=== PATIENT | female | born 1970 | race American Indian/Alaskan Native ===

== ENCOUNTER 2018-01-21 00:32 | Observation (INO) | payer BC ==
[2018-01-21] MEDS ORDERED: ASPIRIN PO ONE (07:47)
--- NOTE | 2018-01-21 08:22 | Emergency Department Report ---
ED Chest Pain HPI - General Chief Complaint: Chest Pain Stated Complaint: CHEST PAIN Time Seen by Provider: 01/21/18 08:21 Source: patient Mode of arrival: Ambulatory Limitations: No Limitations - History of Present Illness Initial Comments: 47-year-old female that denies any previous workup for chest pain or emergency department visit. She states that she was at work at or about 3:30 when she experienced substernal chest pain. She denied any radiation. The pain was not pleuritic. She did not complain of nausea vomiting sweating or any shortness of breath. She states she has never experienced anything like this before. She 's had no prior workup for chest pain or visit to a physical chemistry professor for anything in the past. She states that she was essentially resting at work when this chest pain began. MD Complaint: chest pain -: Gradual, minutes(s) Onset: during rest Pain Location: substernal Pain Radiation: none Severity: moderate Quality: aching Consistency: constant Improves With: nothing Worsens With: nothing re: denies: nausea, vomting, diaphoresis, dyspnea, sense of impending doom Other Symptoms: denies: cough, fever, syncope, rash, acid taste in mouth, leg swelling Treatments Prior to Arrival: none Aspirin use within the Past 7 Days: (0) No - Related Data On Oral Contraceptives: No Home Medications Medication Instructions Recorded Confirmed Last Taken Ibuprofen [Motrin] 800 mg PO DAILY PRN 01/21/18 01/21/18 Unknown Allergies Allergy/AdvReac Type Severity Reaction Status Date / Time No Known Allergies Allergy Unverified 01/21/18 07:46 Heart Score - HEART Score History: Moderately suspicious EKG: Non-specific (mildly, essentially normal) Age: 45-65 Risk factors: 1-2 risk factors Troponin: < normal limit HEART Score: 4 - Critical Actions Critical Actions: 4-6 pts:12-16.6% risk of adverse cardiac event. Should be admitted ED Review of Systems ROS: Stated complaint: CHEST PAIN Other details as noted in HPI Constitutional: denies: chills, fever Eyes: denies: eye pain, eye discharge, vision change ENT: denies: ear pain, throat pain Respiratory: denies: cough, shortness of breath, wheezing Cardiovascular: denies: chest pain, palpitations Endocrine: no symptoms reported Gastrointestinal: denies: abdominal pain, nausea, diarrhea Genitourinary: denies: urgency, dysuria, discharge Musculoskeletal: denies: back pain, joint swelling, arthralgia Skin: denies: rash, lesions Neurological: denies: headache, weakness, paresthesias Psychiatric: denies: anxiety, depression Hematological/Lymphatic: denies: easy bleeding, easy bruising ED Past Medical Hx - Past Medical History Previous Medical History?: No - Surgical History Past Surgical History?: No - Social History Smoking Status: Never Smoker Substance Use Type: None - Medications Home Medications: Home Medications Medication Instructions Recorded Confirmed Last Taken Type Ibuprofen [Motrin] 800 mg PO DAILY PRN 01/21/18 01/21/18 Unknown History ED Physical Exam - General Limitations: No Limitations General appearance: alert, in no apparent distress, obese - Head Head exam: Present: atraumatic, normocephalic - Eye Eye exam: Present: normal appearance, PERRL, EOMI. Absent: scleral icterus - ENT ENT exam: Present: mucous membranes moist - Neck Neck exam: Present: normal inspection. Absent: tenderness, meningismus - Respiratory Respiratory exam: Present: normal lung sounds bilaterally. Absent: respiratory distress - Cardiovascular Cardiovascular Exam: Present: regular rate, normal rhythm. Absent: systolic murmur, diastolic murmur, rubs, gallop - GI/Abdominal GI/Abdominal exam: Present: soft, normal bowel sounds. Absent: distended, tenderness, guarding, rebound, rigid - Extremities Exam Extremities exam: Present: normal inspection - Back Exam Back exam: Present: normal inspection - Neurological Exam Neurological exam: Present: alert, oriented X3, CN II-XII intact. Absent: motor sensory deficit - Psychiatric Psychiatric exam: Present: normal affect, normal mood - Skin Skin exam: Present: warm, dry, intact, normal color. Absent: rash ED Course Vital Signs 01/21/18 01/21/18 01/21/18 00:38 07:36 07:38 Temperature 98.9 F Pulse Rate 64 57 L Respiratory 12 13 Rate Blood Pressure 132/78 143/80 O2 Sat by Pulse 97 100 100 Oximetry 01/21/18 01/21/18 01/21/18 07:41 07:44 08:00 Temperature 98.9 F Pulse Rate 56 L 64 54 L Respiratory 13 12 13 Rate Blood Pressure 143/80 132/78 122/81 O2 Sat by Pulse 99 98 99 Oximetry 01/21/18 01/21/18 01/21/18 08:21 08:30 09:00 Temperature Pulse Rate Respiratory 13 14 12 Rate Blood Pressure 138/82 138/83 O2 Sat by Pulse 99 99 100 Oximetry 01/21/18 01/21/18 01/21/18 09:30 10:00 13:15 Temperature Pulse Rate Respiratory 12 11 L Rate Blood Pressure 135/86 137/75 O2 Sat by Pulse 100 99 100 Oximetry 01/21/18 01/21/18 13:30 14:28 Temperature Pulse Rate 56 L Respiratory 11 L Rate Blood Pressure 137/75 138/80 O2 Sat by Pulse 99 Oximetry - Reevaluation(s) Reevaluation #1: Patient remained clinically stable in the emergency department. She was admitted by the hospitalist service further care and evaluation. 01/21/18 14:30 GONZALES score - Gonzales Score Age > 65: (0) No Aspirin use within the Past 7 Days: (0) No 3 or more CAD Risk Factors: (0) No 2 or more Angina events in past 24 hrs: (0) No Known CAD with more than 50% Stenosis: (0) No Elevated Cardiac Markers: (0) No ST Deviation Greater than 0.5mm: (0) No GONZALES Score: 0 ED Medical Decision Making - Lab Data Result diagrams: 01/21/18 07:50 01/21/18 07:50 Laboratory Results - last 24 hr 01/21/18 01/21/18 01/21/18 07:50 07:50 07:50 WBC 7.3 RBC 4.51 Hgb 11.8 Hct 36.7 MCV 82 MCH 26 L MCHC 32 RDW 14.9 Plt Count 247 Lymph % (Auto) 34.5 Tucker % (Auto) 9.6 H Eos % (Auto) 1.7 Baso % (Auto) 0.4 Lymph # 2.5 Tucker # 0.7 Eos # 0.1 Baso # 0.0 Seg Neutrophils % 53.8 Seg Neutrophils # 3.9 PT INR APTT D-Dimer Sodium 140 Potassium 3.8 Chloride 102.2 Carbon Dioxide 23 Anion Gap 19 BUN 13 Creatinine 0.5 L Estimated GFR > 60 BUN/Creatinine Ratio 26 Glucose 100 Calcium 8.9 Total Bilirubin 0.30 Direct Bilirubin < 0.2 Indirect Bilirubin 0.1 AST 16 ALT 16 Alkaline Phosphatase 72 Troponin T < 0.010 NT-Pro-B Natriuret Pep 16.59 Total Protein 7.3 Albumin 4.2 Albumin/Globulin Ratio 1.4 01/21/18 01/21/18 08:32 08:32 WBC RBC Hgb Hct MCV MCH MCHC RDW Plt Count Lymph % (Auto) Tucker % (Auto) Eos % (Auto) Baso % (Auto) Lymph # Tucker # Eos # Baso # Seg Neutrophils % Seg Neutrophils # PT 12.6 INR 0.90 APTT 30.3 D-Dimer 173.46 Sodium Potassium Chloride Carbon Dioxide Anion Gap BUN Creatinine Estimated GFR BUN/Creatinine Ratio Glucose Calcium Total Bilirubin Direct Bilirubin Indirect Bilirubin AST ALT Alkaline Phosphatase Troponin T NT-Pro-B Natriuret Pep Total Protein Albumin Albumin/Globulin Ratio - EKG Data -: EKG Interpreted by Me EKG shows normal: sinus rhythm, axis, intervals, QRS complexes, ST-T waves Rate: normal - EKG Data Interpretation: other (very mild nonspecific changes) - Radiology Data Radiology results: report reviewed (finding) Critical care attestation.: If time is entered above; I have spent that time in minutes in the direct care of this critically ill patient, excluding procedure time. ED Disposition Clinical Impression: Chest pain Qualifiers: Chest pain type: unspecified Qualified Code(s): R07.9 - Chest pain, unspecified Disposition: DC-09 OP ADMIT IP TO THIS HOSP Is pt being admited?: Yes Does the pt Need Aspirin: Yes Condition: Stable Time of Disposition: 14:31
[2018-01-21 08:24] LABS: Basophils % (Auto) 0.4 % (0.0-1.8); Eosinophils # (Auto) 0.1 K/mm3 (0.0-0.4); Eosinophils % (Auto) 1.7 % (0.0-4.3); Hematocrit 36.7 % (30.3-42.9); Hemoglobin 11.8 gm/dl (10.1-14.3); Lymphocytes # (Auto) 2.5 K/mm3 (1.2-5.4); Lymphocytes % (Auto) 34.5 % (13.4-35.0); Mean Corpuscular HGB Conc 32 % (30-34); Mean Corpuscular Hemoglobin 26 pg (28-32); Mean Corpuscular Volume 82 fl (79-97); Monocytes # (Auto) 0.7 K/mm3 (0.0-0.8); Monocytes % (Auto) 9.6 % (0.0-7.3); Platelet Count 247 K/mm3 (140-440); Red Blood Count 4.51 M/mm3 (3.65-5.03); Red Cell Distribution Width 14.9 % (13.2-15.2)
[2018-01-21 08:34] LABS: BUN/Creatinine Ratio 26; Blood Urea Nitrogen 13 mg/dL (7-17); Calcium 8.9 mg/dL (8.4-10.2); Hemolysis Index 8
--- NOTE | 2018-01-21 08:53 | XRay Report ---
ROUTINE CHEST, TWO VIEWS: HISTORY: chest pain. The trachea, heart, mediastinal contour, lung valladares and bony thorax are unremarkable. IMPRESSION: Unremarkable chest x-ray.
[2018-01-21 09:07] LABS: INR 0.9 (0.87-1.13); Partial Thromboplastin Time 30.3 Sec. (24.2-36.6)
--- NOTE | 2018-01-21 09:15 | History and Physical Report ---
History of Present Illness Date of examination: 01/21/18 Date of admission: 01/21/18 Chief complaint: Chest pain since yesterday History of present illness: 47-year-old morbidly obese -Filipino female patient with no significant past medical history Presented to the emergency room with the complaints of intermittent left-sided chest pain since yesterday afternoon Patient reports her chest pain is squeezing to pressure type, grades between 8- 9 at its peak, lasts about 15 minutes to half an hour Radiates to left shoulder, not associated with nausea vomiting, diaphoresis or shortness of breath No aggravating and relieving factors Denies orthopnea or paroxysmal nocturnal dyspnea Past History Past Medical History: No medical history Past Surgical History: Other (tubal ligation) Social history: lives with family, alcohol abuse (social). denies: smoking, prescription drug abuse Family history: CAD (cousin and grandmother in their 40s to 50s), hypertension Medications and Allergies Allergies Allergy/AdvReac Type Severity Reaction Status Date / Time No Known Allergies Allergy Unverified 01/21/18 07:46 Review of Systems Constitutional: no weight loss, no weight gain, no fever, no chills Ears, nose, mouth and throat: no nasal congestion, no nasal discharge Cardiovascular: chest pain, no orthopnea, no palpitations, no lightheadedness, no shortness of breath Respiratory: no cough, no shortness of breath Gastrointestinal: no abdominal pain, no nausea, no vomiting Genitourinary Female: no flank pain, no dysuria Musculoskeletal: no myalgias, no arthritis Integumentary: no rash, no lesions Neurological: no weakness, no seizures Psychiatric: no anxiety, no depression Endocrine: no cold intolerance, no heat intolerance, no polydipsia, no polyuria Hematologic/Lymphatic: no easy bruising, no easy bleeding Allergic/Immunologic: no urticaria, no allergic rhinitis Exam - Constitutional Vitals: Temp Pulse Resp BP Pulse Ox 98.9 F 54 L 13 122/81 99 01/21/18 07:44 01/21/18 08:00 01/21/18 08:21 01/21/18 08:00 01/21/18 08:21 General appearance: Present: no acute distress, well-nourished, obese ( moderately obese) - EENT Eyes: Present: PERRL, EOM intact - Neck Neck: Present: supple, normal ROM - Respiratory Respiratory effort: normal Respiratory: bilateral: diminished, negative: rales, rhonchi, wheezing - Cardiovascular Rhythm: regular Heart Sounds: Present: S1 & S2 - Extremities Extremities: no ischemia, No edema - Abdominal General gastrointestinal: Present: soft, non-tender, non-distended, normal bowel sounds - Integumentary Integumentary: Present: clear, warm - Musculoskeletal Musculoskeletal: strength equal bilaterally - Psychiatric Psychiatric: appropriate mood/affect, cooperative - Neurologic Neurologic: CNII-XII intact, moves all extremities Results - Labs CBC & Chem 7: 01/21/18 07:50 01/21/18 07:50 Labs: Abnormal lab results 01/21/18 01/21/18 Range/Units 07:50 07:50 MCH 26 L (28-32) pg [place] % (Auto) 9.6 H (0.0-7.3) % Creatinine 0.5 L (0.7-1.2) mg/dL Assessment and Plan --Chest pain, probably secondary to acute coronary syndrome Serial cardiac enzymes, EKG, echocardiogram for left ventricular function ejection fraction Lexiscan stress test in view of risk factors to rule out reversible ischemia Aspirin, beta blockers, bruce inhibitors, nitrates, statins and morphine --Gastroesophageal disease; Protonix --Morbid obesity; counseling diet modification and exercise as tolerated and weight reduction When medically stable --DVT prophylaxis Lovenox Closely monitor the patient and adjust the management as needed Follow stress test, if abnormal, consider cardiology evaluation as needed Plan of care discussed with the patient, and her at the bedside as well as patient's nurse
[2018-01-21 09:25] LABS: Alanine Aminotransferase 16 units/L (7-56); Albumin 4.2 g/dL (3.9-5)
[2018-01-21] MEDS ORDERED: NITROSTAT SL PRN (09:25)
[2018-01-21] MEDS ORDERED: MORPHINE IV PRN (09:25)
[2018-01-21 09:40] LABS: Bilirubin,Direct < 0.2 mg/dL (0-0.2)
[2018-01-21] MEDS ORDERED: ASPIRIN PO SCH (10:00)
[2018-01-21 10:17] LABS: Chol/HDL Ratio 4.5 %
[2018-01-21] MEDS ORDERED: PEPCID IV SCH (12:00)
[2018-01-21] MEDS ORDERED: ZESTRIL PO SCH (12:00)
[2018-01-21] MEDS ORDERED: ZESTRIL ONE (14:22)
[2018-01-21] MEDS ORDERED: PEPCID IV ONE (14:22)
[2018-01-21] MEDS ORDERED: ASPIRIN ONE (14:22)
[2018-01-21 14:29] VITALS: BP 138/80
--- NOTE | 2018-01-21 15:36 | Discharge Summary ---
Providers - Providers Date of Admission: 01/21/18 08:50 Date of discharge: 01/21/18 Attending physician: AMERICA TOTH Primary care physician: DIGESTION OPERATOR Hospitalization Reason for admission: chest pain of one-day duration Condition: Stable Pertinent studies: Chest x-ray; normal study Echocardiogram; EF 50-55% Stress test; negative for reversible ischemia Normal study Hospital course: 47-year-old female patient with no significant past medical history not on any medications was admitted through emergency room with left-sided chest pain of one-day duration Patient was evaluated and admitted to the hospital symptomatically managed Subsequently underwent echocardiogram which was within normal limits and stress test which was negative for reversible ischemia Patient is morbidly obese, counseling done, advised weight reduction, Patient's chest pain may be secondary to gastroesophageal reflux disease Today patient is comfortable no new complaints Vital signs stable, Physical examination done by me prior to discharge is unremarkable Patient is hemodynamically and clinically stable at discharge Discharge diagnosis; --Atypical chest pain;noncardiac, secondary to GERD --Gastroesophageal reflux disease, Protonix --Dyslipidemia --Morbid obesity Disposition: DC- TO HOME OR SELFCARE Time spent for discharge: 32 min Core Measure Documentation - Palliative Care Palliative Care/ Comfort Measures: Not Applicable - Core Measures Any of the following diagnoses?: none Exam - Constitutional Vitals: Temp Pulse Resp BP Pulse Ox 98.9 F 56 L 11 L 138/80 99 01/21/18 07:44 01/21/18 13:30 01/21/18 13:30 01/21/18 14:28 01/21/18 13:30 General appearance: Present: no acute distress, obese - EENT Eyes: Present: PERRL, EOM intact - Neck Neck: Present: supple, normal ROM - Respiratory Respiratory effort: normal Respiratory: negative: rales, rhonchi, wheezing - Cardiovascular Rhythm: regular Heart Sounds: Present: S1 & S2 - Extremities Extremities: no ischemia, No edema - Abdominal General gastrointestinal: Present: soft, non-tender, non-distended, normal bowel sounds - Integumentary Integumentary: Present: clear, warm - Musculoskeletal Musculoskeletal: strength equal bilaterally - Psychiatric Psychiatric: appropriate mood/affect, cooperative - Neurologic Neurologic: CNII-XII intact, moves all extremities Plan Activity: no restrictions Diet: low cholesterol Additional Instructions: Exercise as tolerated and weight reduction. Low- cholesterol diet. If you have chest pain or shortness of breath contact M.D. or go to emergency room. He have recurrent chest pain clinic to see packager hand Dr. Munoz for further evaluation and management as outpatient Follow up with: PRIMARY CARE, [Primary Care Provider] - 3-5 Days ANTHONY MUNOZ MD [Staff Physician] - 7 Days Forms: Work/School Release Form(ED) Prescriptions: AtorvaSTATin [Lipitor] 40 mg PO QHS #30 tablet Pantoprazole [Protonix] 40 mg PO QDAY #14 tablet
[2018-01-21] MEDS ORDERED: LOVENOX SUB-Q SCH (22:00)
--- NOTE | 2018-01-21 22:36 | Treadmill Report ---
INDICATION: Chest pain. ORDERING PHYSICIAN: Fabiano Eldridge MD FINDINGS: There is no scintigraphic evidence of myocardial ischemia. The left ventricle is normal in size and systolic function. The left ventricular ejection fraction is measured at 71%. Normal wall motion and wall thickening is noted on gated imaging. CONCLUSION: Normal perfusion scan. JOB# [id number] JULY/NTS
== END 2018-01-21 16:23 | disposition home or self-care (01) ==
LOC: ED 00:32 → INTOOBSV 08:50 → 4A 08:50
PROVIDERS: ADMIT Internal Medicine; ATTEND Internal Medicine
DX: R07.89 Other chest pain (principal); E66.01 Morbid (severe) obesity due to excess calories; K21.9 Gastro-esophageal reflux disease without esophagitis; E78.5 Hyperlipidemia, unspecified; Z68.42 Body mass index [BMI] 45.0-49.9, adult; Z82.49 Family history of ischemic heart disease and other diseases of the circulatory system
CPT/HCPCS: 36415; 71046; 78452; 80048; 80061; 80074; 83880; 84484; 85025; 85379; 85610; 85730; 93005; 93010; 93017; 93306; 96374; 99285; A9502; G0378